=== PATIENT | female | born 1995 | race Caucasian/White ===

== ENCOUNTER 2020-09-06 02:01 | Emergency (ER) | payer OTHER ==
[~2020-09-06 02:01] MED LIST: MOTRIN600 MG PO; ZOFRAN4 MG PO
== END 2020-09-06 04:19 | disposition home or self-care (01) ==
LOC: FER 02:01
DX: Z32.01 Encounter for pregnancy test, result positive (principal)
CPT/HCPCS: 36415; 84702; 99282

== ENCOUNTER 2020-12-04 03:28 | Emergency (ER) | payer OTHER | END 2020-12-04 04:12 | disposition home or self-care (01) | LOC: FER 03:28 | DX: O9A.212 Injury, poisoning and certain other consequences of external causes complicating pregnancy, second trimester (principal); S39.91XA Unspecified injury of abdomen, initial encounter; O24.419 Gestational diabetes mellitus in pregnancy, unspecified control; O16.2 Unspecified maternal hypertension, second trimester; O99.332 Smoking (tobacco) complicating pregnancy, second trimester; F17.210 Nicotine dependence, cigarettes, uncomplicated; Z3A.18 18 weeks gestation of pregnancy; Y04.2XXA Assault by strike against or bumped into by another person, initial encounter | CPT/HCPCS: 99283 ==

== ENCOUNTER 2021-02-24 15:37 | Emergency (ER) | payer OTHER ==
[2021-02-24 16:38] LABS: BASOPHIL 0.3 % (0-2); EOSINOPHIL 0.1 % (0-5); HCT 36.2 % (37.0-47.0); HGB 11.4 g/dl (12.5-16.0); LYMPHOCYTE 12.3 % (15-48); MCH 29.7 pg (25.0-31.0); MCHC 31.5 g/dL (32.0-36.0); MCV 94.3 fL (78.0-100.0); MONOCYTE 11.2 % (0-12); MPV 9.9 fL (6.0-9.5); NEUTROPHIL 75.4 % (41-80); NRBC 0; PLT 179 K/uL (150-400); RBC 3.84 M/uL (4.20-5.40); RDW 14.2 % (11.5-14.0)
[2021-02-24 16:38] LABS: BILIRUBIN NEGATIVE (NEGATIVE); BLOOD NEGATIVE Ery/uL (NEGATIVE); CLARITY CLEAR (CLEAR); COLOR YELLOW (YELLOW); GLUCOSE (U) NORMAL (NORMAL); LEUKOCYTES 1+ Leu/uL (NEGATIVE); NITRITE NEGATIVE (NEGATIVE); PROTEIN NEGATIVE (NEGATIVE); SPECIFIC GRAVITY 1.015 (1.001-1.030); UROBILINOGEN 0.2 mg/dL (0.2-1.0); pH 6.5 (5.0-9.0)
[2021-02-24 16:46] LABS: BACTERIA 1+
[2021-02-24 16:57] LABS: ALBUMIN 2.8 g/dL (3.4-5.0); BILIRUBIN - TOTAL 0.2 mg/dL (0.2-1.0); BUN/CREAT RATIO (CALC) 5.6 RATIO; CREATININE 0.54 mg/dL (0.51-0.95); POTASSIUM 3.7 mmol/L (3.5-5.1); TOTAL PROTEIN 6.8 g/dL (6.4-8.2)
[2021-02-24] MEDS ORDERED: VENTOLIN HFA18 GM INH (19:54)
[2021-02-24] MEDS ORDERED: ZOFRAN4 M1 PO (19:54)
== END 2021-02-24 20:25 | disposition home or self-care (01) ==
LOC: FER 15:37
PROVIDERS: Emergency Medicine
DX: O98.513 Other viral diseases complicating pregnancy, third trimester (principal); U07.1 COVID-19; Z23 Encounter for immunization; O16.3 Unspecified maternal hypertension, third trimester; Z3A.30 30 weeks gestation of pregnancy; O99.333 Smoking (tobacco) complicating pregnancy, third trimester; F17.210 Nicotine dependence, cigarettes, uncomplicated; Z79.82 Long term (current) use of aspirin; Z79.899 Other long term (current) drug therapy
CPT/HCPCS: 36415; 80053; 81001; 85025; J2405; J7030; M0243; Q0244; U0002

== ENCOUNTER 2021-11-08 02:05 | Emergency (ER) | payer OTHER ==
[~2021-11-08 02:05] MED LIST changes: +VENTOLIN HFA18 GM INH; +ZOFRAN4 M1 PO
[2021-11-08 03:10] LABS: ALBUMIN 4.7 g/dL (3.4-5.0); BILIRUBIN - TOTAL 0.3 mg/dL (0.2-1.0); BUN/CREAT RATIO (CALC) 11.2 RATIO; CREATININE 0.8 mg/dL (0.51-0.95); GLOBULIN (CALCULATION) 3.2 g/dL; POTASSIUM 4.3 mmol/L (3.5-5.1); TOTAL PROTEIN 7.9 g/dL (6.4-8.2)
[2021-11-08 03:15] LABS: BASOPHIL 0.9 % (0-2); EOSINOPHIL 4.3 % (0-5); HCT 46.3 % (37.0-47.0); HGB 14.3 g/dl (12.5-16.0); LYMPHOCYTE 44.9 % (15-48); MCHC 30.9 g/dL (32.0-36.0); MCV 90.6 fL (78.0-100.0); MONOCYTE 5.6 % (0-12); MPV 10.7 fL (6.0-9.5); NRBC 0; PLT 265 K/uL (150-400); RBC 5.11 M/uL (4.20-5.40); RDW 14.8 % (11.5-14.0); WBC 9.1 K/uL (4.0-10.5)
== END 2021-11-08 04:52 | disposition home or self-care (01) ==
LOC: FER 02:05
PROVIDERS: Internal Medicine
DX: K62.5 Hemorrhage of anus and rectum (principal); K76.0 Fatty (change of) liver, not elsewhere classified; F17.210 Nicotine dependence, cigarettes, uncomplicated; Z28.310 Unvaccinated for COVID-19
CPT/HCPCS: 36415; 80053; 83690; 85025; J7120; Q9967